=== PATIENT | male | born 1975 | race Caucasian/White ===

== ENCOUNTER 2023-04-16 05:54 | Emergency (ER) | payer BC, OTHER ==
[2023-04-16 06:08] VITALS: O2SAT 97
[2023-04-16] MEDS: TETANUS/DIPHTHERIA/PERTUSSIS 0.5 ML SYRINGE IM ONE (06:18)
[2023-04-16] MEDS: lidocaine 1% 20 ML MDV SUBQ ONE (06:25)
--- NOTE | 2023-04-16 06:48 | ED Physician Documentation ---
History of Present Illness - Stated complaint Stated Complaint: R KNEE INJ - Chief complaint Chief Complaint: Laceration - History obtained from History obtained from: Patient - Additonal information Additional information: The patient comes to the emergency department chief complaint of right knee laceration after tripping and falling in his yard. He believes he hit his knee on the edge of a laborer tin can probe he was not injured in any other way. He has been ambulatory since this happened just prior to arrival. Not sure when his last tetanus shot was. No other injuries or complaints at this time. PD PAST MEDICAL HISTORY - Past Medical History Past Medical History: No - Past Surgical History Past Surgical History: No - Present Medications Home Medications: Ambulatory Orders Medication Instructions Recorded Confirmed No Known Home Medications 04/16/23 04/16/23 - Allergies Allergies/Adverse Reactions: Allergies Allergy/AdvReac Type Severity Reaction Status Date / Time No Known Drug Allergies Allergy Verified 04/16/23 06:06 - Social History Does the pt smoke?: No Smoking Status: Never smoker Does the pt drink ETOH?: Yes ETOH Use: Beer Does the pt have substance abuse?: No - Immunizations Immunizations: TDAP >10years/unknown - POLST Patient has POLST: No PD ED PE NORMAL - Vitals Vital signs reviewed: Yes - General General: Alert and oriented X 3, No acute distress, Well developed/nourished - HEENT HEENT: Atraumatic, EOMI, Moist mucous membranes - Neck Neck: Supple, no meningeal sign - Respiratory Respiratory: No respiratory distress - Derm Derm: Normal color, Warm and dry, Other (4.5 cm total length flap laceration to prepatellar area of right knee. Moderate particulate matter in laceration. Bleeding controlled.) - Extremities Extremities: No deformity, Other (Normal range of motion. Slightly limping gait but ambulates without assistance on a narrow-base gait.) - Neuro Neuro: Alert and oriented X 3 - Psych Psych: Normal mood, Normal affect Results - Vitals Vitals: Vital Signs - 24 hr 04/16/23 05:58 Temperature 36.6 C Heart Rate 83 Respiratory 16 Rate Blood Pressure 134/109 H O2 Saturation 97 Oxygen O2 Source Room air Procedures - Laceration (location) Right knee Length in cm: 4.5 Wound type: Curved, Flap, Contaminated (Dirt/sand) Neurovascular status: Sensory intact, Motor intact, Vascular intact Anesthesia: Lidocaine 1% Wound preparation: Hibiclens, Irrigated copiously NS, Wound explored, To the base, debridement of wound edges (traumatic laceration/avulsion), Extensive cleaning/removal of particulate matter Skin layer closure: Nylon, Interrupted, Size #-0 - enter number (4.0), Sutures - enter # (8) Other: Patient tolerated well, No complications, Neurovascular intact, Dressing applied, Tetanus booster given PD Medical Decision Making - ED course Complexity details: considered differential, d/w patient ED course: The wound was repaired as above and patient's tetanus was updated. We have discussed wound care at home, timeline for suture removal which was should be 7 to 10 days, indications for sooner return, and signs of infection. Departure - Departure Disposition: 01 Home, Self Care Clinical Impression: Laceration Condition: Stable Instructions: ED Laceration All Comments: Your laceration has been repaired today with synthetic suture, which has to be removed. For the type, size, and location of your laceration, as that it is advisable for you to have the sutures in for 7 to 10 days. You may have the wound rechecked around 7 days to see if it is ready for suture removal, though bear in mind that the doctor who sees you may decide you need to leave the sutures in a little longer. In the meantime, you may allow water and soap to run over the wound but please do not rub, scrub, or immerse the wound until sutures have been removed. This is to prevent bacteria from traveling on your skin along the suture and causing infection. In general you should keep the wound clean and dry. You should have modified duty at work that involves a dry job, until the sutures are removed. If you begin to develop any redness or s welling spreading progressively away from the wound, or if the wound begins to split apart and appear "mushy", please have it rechecked right away. Forms: PCP List, Activity restrictions
[2023-04-16] MEDS: BACITRACIN ZINC OINT 1 PACKET TOP STA (06:50)
[2023-04-16 07:17] VITALS: BP 130/89
== END 2023-04-16 07:05 | disposition home or self-care (01) ==
LOC: ED 05:54
DX: S81.011A Laceration without foreign body, right knee, initial encounter (principal); W01.0XXA Fall on same level from slipping, tripping and stumbling without subsequent striking against object, initial encounter; Y92.007 Garden or yard of unspecified non-institutional (private) residence as the place of occurrence of the external cause; Z23 Encounter for immunization
CPT/HCPCS: 12002; 90471; 99283